=== PATIENT | male | born 1935 | race Asian ===

== ENCOUNTER 2017-07-07 20:01 | Emergency (ER) | payer MEDICARE, OTHER ==
[~2017-07-07] VITALS: Ht 165.1 cm; Wt 75.0 kg
[2017-07-07 20:14] VITALS: BP 114/59
[2017-07-07] MEDS ORDERED: BACITRACIN ZINC OINT UDPKT TOP ONE (20:45)
[2017-07-07] MEDS ORDERED: ONDANSETRON HCL 4MG/2ML VIAL IV ONE (20:45)
[2017-07-07] MEDS ORDERED: MORPHINE SULFATE 10 MG/ML CPJ IV ONE (20:45)
[2017-07-07] MEDS ORDERED: TETANUS, DIPHTHERIA, PERTUSSIS VAC/PF 0.5ML (>7YR OLD) IM ONE (20:45)
== END 2017-07-07 22:35 | disposition left against medical advice (07) ==
LOC: ER 21:44 → CANBEDREQ 07-08 02:10
DX: R55 Syncope and collapse (principal); S01.81XA Laceration without foreign body of other part of head, initial encounter; I10 Essential (primary) hypertension; W01.0XXA Fall on same level from slipping, tripping and stumbling without subsequent striking against object, initial encounter; Y93.E1 Activity, personal bathing and showering; Y92.39 Other specified sports and athletic area as the place of occurrence of the external cause
CPT/HCPCS: 12011; 90471; 90715; 93005; 99283; J2270; J2405